=== PATIENT | female | born 1975 | race Caucasian/White ===

== ENCOUNTER → 2018-09-21 | Outpatient (CLI) | payer OTHER ==
[~2018-09-21] MED LIST: ALLEGRA ALLERG180 MG PO; BIRTH CONTROL PILL PO; CARAFATE 1 GM TA1 G1 PO; CYMBALTA60 MG PO; GABADONE CAPSU1 EAC1 PO; HYDROCODONE-AP1 EAC6 PO; LEXAPRO 10 MG T10 M1 PO; MACROBID; PRENATAL; PRINIVIL20 M1 PO; TOPAMAX 25 MG T25 M1 PO; TOPAMAX50 MG PO; ZOFRAN4 MG PO; ZYRTEC10 M2 PO
== END ==
LOC: M.ULTRA 09:24
DX: R10.11 Right upper quadrant pain (principal); Z88.8 Allergy status to other drugs, medicaments and biological substances

== ENCOUNTER → 2018-10-08 | Outpatient (CLI) | payer OTHER | LOC: M.NUC 07:25 | DX: R10.11 Right upper quadrant pain (principal); R11.0 Nausea ==

== ENCOUNTER → 2020-08-27 | Outpatient (CLI) | payer OTHER | LOC: M.RAD 14:39 | PROVIDERS: ATTEND Specialist | DX: Z12.31 Encounter for screening mammogram for malignant neoplasm of breast (principal) ==

== ENCOUNTER → 2020-11-23 | Outpatient (CLI) | payer OTHER | LOC: M.CT 13:00 | PROVIDERS: ATTEND Family Medicine | DX: N20.0 Calculus of kidney (principal); M54.9 Dorsalgia, unspecified; R79.89 Other specified abnormal findings of blood chemistry; Z90.49 Acquired absence of other specified parts of digestive tract ==